=== PATIENT | male | born 1965 | race Caucasian/White ===

== ENCOUNTER 2025-04-19 00:50 | Emergency (ER) | payer BC, SELFPAY ==
[2025-04-19 01:01] VITALS: BP 121/100
[2025-04-19 01:27] LABS: Hematocrit 46.1 % (39.0-52.0); Hemoglobin 15.2 g/dL (13.0-18.0); Mean Corp Hgb Conc. 33.0 g/dL (33.0-37.0); Mean Corpuscular Volume 88.5 fL (80.0-94.0); Nucleated Red Blood Cells % 0 % (-); Platelet Count 211 10^3/uL (130-400); Red Cell Dist. Width 12.7 % (11.5-14.5)
[2025-04-19 01:50] LABS: ALT (SGPT) 38 U/L (0-50); AST (SGOT) 28 U/L (17-59); Albumin 4.5 g/dl (3.5-5.0); Alkaline Phosphatase 72 U/L (38-126); Blood Urea Nitrogen 20 mg/dl (9-20); Calcium 10.5 mg/dl (8.4-10.2); Carbon Dioxide 28 mmol/L (22-30); Chloride 110 mmol/L (98-107); Glucose 114 mg/dl (70-99); Lipase 175 U/L (23-300); Potassium 4.6 mmol/L (3.5-5.1); Sodium 144 mmol/L (135-145); Total Protein 7.0 g/dl (6.3-8.2); eGFR 57.90
[2025-04-19 05:35] VITALS: BP 119/98
[2025-04-19 06:03] VITALS: BMI 36.4
--- NOTE | 2025-04-19 06:03 | ED.GENMED ---
History of Present Illness
General
Chief Complaint: Abdominal Pain
Source: patient
Exam Limitations: none
Time Seen by Provider: 04/19/25 06:03
Nursing documentation reviewed up to this point in time: agreed with
History of Present Illness
History of Present Illness:
The patient is a 60-year-old man with a past medical history of diverticulosis who comes in with complaints of gradual onset of left lower abdominal pain starting yesterday. Patient reports nausea but no vomiting. He denies diarrhea. He denies
fever. Patient reports that the pain is worse with movement.
Past History
Past History
ED Past Medical History: Hypercholesterolemia, Seizures and Other (Migraine headaches, cluster headaches and ocular migraines)
ED Past Surgical History: Brain (Frontal lobe dermoid cyst removal 1999, additional brain surgery 2018) and Other (Dermoid cyst removed from the left frontal lobe, Hemorrhoid banding; carcinoid tumor of the rectum resected 2008.)
Social History
Tobacco: Former smoker
Alcohol: None
Drug: None
Personal:
Living: with family
Employment: Disabled
Family History
Family History: CAD
Review of Systems
Review of Systems
Allergies reviewed?: Yes
All Other Systems: ROS reviewed and negative except as documented in HPI and ROS
Constitutional: Reports no symptoms
EENT: Reports no symptoms
Respiratory: Reports no symptoms
Cardiac: Reports no symptoms
ABD/GI: Reports abdominal pain and nausea
: Reports no symptoms
Musculoskeletal: Reports no symptoms
Skin: Reports no symptoms
Neurological: Reports no symptoms
Endocrine: Reports no symptoms
Hematologic/Lymphatic: Reports no symptoms
Psychiatric: Reports no symptoms
Phy Exam
Physical Exam
Physical Exam:
Physical Exam
General: Patient appears uncomfortable but is conversational
Neck: supple. no meningeal signs. normal psoterior pharynx
Heart: s1/s2 regular rate and rhythm, no murmur. equal radial pulses.
Lungs: no acute respiratory distress. clear bilaterally
Abdomen: normal bowel sounds. Left lower quadrant tenderness. No rebound or guarding. No pulsatile mass
Neuro: alert and oriented. no focal neurological deficits
Skin: no rash
Psychiatric: well kept. interactive and cooperative
Extremities: no edema. no calf tenderness. negative homans. good distal pulses
Course
Orders/Labs/Results
Orders:
Orders
04/19/25 01:12
Complete Blood Count/With Diff Urgent
Comprehensive Metabolic Panel Urgent
Lactic Acid Urgent
Lipase Urgent
04/19/25 06:09
Morphine Sulfate 4 mg IV NOW STA
Ondansetron Injectable [Zofran] 4 mg IV NOW STA
04/19/25 06:10
CT Abd/pelvis W Iv Cont Urgent
Comment:
Reason For Exam: LLQ pain
Morphine Sulfate 4 mg .ROUTE .STK-MED ONE
Ondansetron Injectable [Zofran] 4 mg .ROUTE .STK-MED ONE
04/19/25 07:08
0.9% Sodium Chloride 1000 ml [Nss] 1,000 ml IV BOLUS
Ketorolac [Toradol] 15 mg IV NOW STA
04/19/25 08:42
Urinalysis Reflex To Culture Urgent
Date Specimen was Collected: 04/19/25
Time Specimen was Collected: 08:37
Urine Microscopic Reflex Cult Urgent
Abnormal Lab Results
04/19/25 04/19/25
01:12 08:42
WBC 10.9 H 10^3/uL
(4.8-10.8)
Absolute Neuts (auto) 7.5 H 10^3/uL
(1.4-6.5)
Absolute Monos (auto) 0.8 H 10^3/uL
(0.1-0.6)
Chloride 110 H mmol/L
(98-107)
Creatinine 1.4 H mg/dL
(0.7-1.3)
Glucose 114 H mg/dl
(70-99)
Calcium 10.5 H mg/dl
(8.4-10.2)
Ur Occult Blood Reflex 4+ A
(Negative)
Urine RBC 60-70 A /HPF
(0-2)
Urine Bacteria (Reflex) Few A
(Negative)
Urine Albumin (Reflex) 1+ A
(Neg - Trace)
04/19/25 01:12
04/19/25 01:12
Vital Signs
Initial and Last Documented VS:
Initial Vital Signs
Temp Pulse Resp BP Pulse Ox
98.0 F 85 20 121/100 95
04/19/25 01:01 04/19/25 01:01 04/19/25 01:01 04/19/25 01:01 04/19/25 01:01
Last Documented Vital Signs
Temp Pulse Resp BP Pulse Ox
98.0 F 86 18 158/106 94
04/19/25 01:01 04/19/25 07:22 04/19/25 07:22 04/19/25 07:22 04/19/25 07:22
MDM/Problems Addressed
Differential Diagnosis Includes:
Acute diverticulitis, renal colic, pyelonephritis
MDM/Problems Addressed:
Patient presents with acute left lower abdominal pain
Chronic conditions affecting care:
History of diverticulosis
Acute Exacerbation and/or Progression of Chronic Illness:
Patient may have acute exacerbation of chronic diverticulosis
*Radiology
Radiology exam reviewed: radiology read reviewed
*Pulse Oximetry
SaO2: 95
Oxygen Mode of Delivery: Room air
Patient hypoxic: no
Comment: 95% on room air
*Critical Care Note
Total Time (30-74mins, 75-104mins- exclusive of procedures): Not Applicable
Data Reviewed
Review of Other/Old Records Reveals: Radiology Studies (CT abdomen pelvis reviewed from 2019. Report shows no significant abnormalities)
Source: patient and spouse
Update Note
Update Note:
9:30 AM patient feels much better and pain is tolerable. Patient has no nausea or vomiting. Patient has no sign of UTI, chills or fever. Patient instructed to drink lots of fluids, use pain medication only for severe pain, otherwise use Motrin.
Patient reports he has his own urologist but patient also given name of Dr. Esquivel in the event his urologist is no longer available.
ED Attending Note
-
Portions of this chart may have been created with voice recognition software.� Occasional wrong word or��sound alike� substitutions may have occurred due to the inherent limitations of voice recognition software.
Discharge Plan
Departure
Patient Disposition: Home (Routine Discharge)
Date of Disposition: 04/19/25
Time of Disposition: 09:45
Patient with high blood pressure during this ER visit?: Yes
Condition: Good
Covid-19: Not Applicable
Discharge Problem:
Calculus of proximal left ureter
Instructions: Renal Colic (DC)
Prescriptions:
New
ondansetron 4 mg tablet,disintegrating
4 mg PO Q8H PRN (Reason: nausea and vomiting) Qty: 14 0RF
oxycodone 5 mg tablet
5 mg PO Q6H PRN (Reason: Pain) Qty: 7 0RF
No Action
levetiracetam 500 MG tablet
2,000 mg PO BID
travoprost [Travatan Z] 5 ML drops
1 drp BOTH EYES HS
aspirin 81 MG tablet,delayed release (DR/EC)
81 mg PO DAILY
atorvastatin 80 MG tablet
80 mg PO QPM
polyethylene glycol 3350 17 GRAMS powder in packet
17 grams PO DAILY
methylcellulose (laxative) [Citrucel] 500 MG tablet
1,000 mg PO DAILY
fludrocortisone 0.1 MG tablet
0.1 mg PO DAILY
fncpjafo-evz-zjoikomtu-vit D3 1 EACH tablet
1 ea PO DAILY
docosahexaenoic acid-epa 1 CAP capsule
1 cap PO BID
Referrals:
Migue Esquivel MD [[facility], Urology]
Referral Note: Call to make an appointment to see in the office in 7 to 10 days
UNKNOWN - PT DOES,NOT KNOW [Family Provider]
Activity Restrictions/Additional Instructions:
Your CAT scan shows a 2 mm kidney stone that has traveled out of the left kidney into the ureter.
Please take 400 mg of Motrin/Advil every 6-8 hours for pain. If the pain becomes severe, you can take 1 oxycodone every 6 hours for severe pain.
Please call your urologist or the urologist we recommended this Sunday to make an appointment to see in the office in 7 to 10 days.
Please return with any persistent vomiting or fever
Interventions
Interventions:
*Risk Screen - Suicide Last Done: 04/19/25 06:03
*General Assessment Last Done: 04/19/25 01:01
*Neglect/Abuse Screening Last Done: 04/19/25 06:03
*ED- Fall Risk Assessment Last Done: 04/19/25 06:03
*ED COVID-19 Vaccine History Last Done: 04/19/25 06:03
NI-Bzbooe-Wddnhuzsnq Assessment Last Done: 04/19/25 06:03
Discharge Date and Time
Print Language: ARABIC
--- NOTE | 2025-04-19 06:06 | EDRN ---
Updated patient on blood work and placed an IV, apologized for their wait and informed patient once the doctor is in to see him we can get him more comfortable.
[2025-04-19] MEDS: MORPHINE SULFATE 4 MG IV (06:11)
[2025-04-19] MEDS: ZOFRAN 4 MG IV (06:11)
[2025-04-19] MEDS: NSS 1000 IV (07:13)
[2025-04-19] MEDS: TORADOL 15 MG IV (07:14)
[2025-04-19 07:22] VITALS: BP 158/106
[2025-04-19 08:53] LABS: Urine Character Clear (Clear)
[2025-04-19 09:33] LABS: Urine Squamous Cell 0-2 /LPF (Few)
[2025-04-19 09:34] LABS: Urine Red Blood Cell 60-70 /HPF (0-2); Urine White Cell 0-2 /HPF (0-5)
--- NOTE | 2025-04-19 09:59 | EDRN ---
Reviewed discharge instructions with the patient. Verbalized understanding. Ambulated with steady gait to the [facility].
[2025-04-19 10:03] VITALS: BP 133/98
== END 2025-04-19 09:55 | disposition home or self-care (01) ==
LOC: EMR 00:50
PROVIDERS: Emergency Medicine; EMERGENCY PHYSICIAN Emergency Medicine
DX: N20.1 Calculus of ureter (principal); R11.0 Nausea; R03.0 Elevated blood-pressure reading, without diagnosis of hypertension; K57.90 Diverticulosis of intestine, part unspecified, without perforation or abscess without bleeding; E78.00 Pure hypercholesterolemia, unspecified; R56.9 Unspecified convulsions; G43.809 Other migraine, not intractable, without status migrainosus; Z87.19 Personal history of other diseases of the digestive system; Z79.82 Long term (current) use of aspirin; Z88.0 Allergy status to penicillin; Z88.2 Allergy status to sulfonamides; Z88.8 Allergy status to other drugs, medicaments and biological substances
CPT/HCPCS: 99284; 96375 ×2; 96361; 96374; 74177; 80053; 81003; 81015; 83605; 83690; 85025; Q9967